=== PATIENT | female | born 1965 | race Caucasian/White ===

== ENCOUNTER 2020-06-26 18:16 | Emergency (ER) | payer OTHER ==
[~2020-06-26] VITALS: Ht 165.1 cm; Wt 79.4 kg
[~2020-06-26 18:16] MED LIST: CLARITIN10 MG PO; CLEOCIN HCL300 MG PO; FLAGYL500 MG PO; Motrin,Rufen800 MG PO; VANCOMYCIN250 MG/2.5 PO; ZITHROMAX Z PA250 MG PO
== END 2020-06-26 19:36 | disposition home or self-care (01) ==
LOC: ED 18:16
DX: S90.32XA Contusion of left foot, initial encounter (principal); Z98.890 Other specified postprocedural states; W10.8XXA Fall (on) (from) other stairs and steps, initial encounter; Y93.89 Activity, other specified; Y92.89 Other specified places as the place of occurrence of the external cause; Y99.8 Other external cause status